=== PATIENT | male | born 1955 | race American Indian/Alaskan Native ===

== ENCOUNTER 2017-06-11 06:59 | Outpatient (CLI) | payer OTHER ==
[2017-06-11] MEDS ORDERED: PROVENTIL IH ONE (07:57)
== END 2017-06-11 07:00 | disposition home or self-care (01) ==
LOC: PF 06:59
PROVIDERS: ATTEND Internal Medicine
DX: J44.9 Chronic obstructive pulmonary disease, unspecified (principal); E11.9 Type 2 diabetes mellitus without complications; I10 Essential (primary) hypertension; F32.9 Major depressive disorder, single episode, unspecified; M51.36 Other intervertebral disc degeneration, lumbar region; G56.00 Carpal tunnel syndrome, unspecified upper limb; G47.30 Sleep apnea, unspecified
CPT/HCPCS: 94060; 94640